=== PATIENT | female | born 2000 | race Caucasian/White ===

== ENCOUNTER 2023-10-16 13:40 | Outpatient (REF) | payer MEDICAID, SELFPAY ==
--- NOTE | 2023-10-16 13:20 | PAPFT_PTH ---
PATIENT: Mariana Elias LOC: [facility] U#:[id number] AGE/SX: 23/F ROOM: RE10/16/[address]: Rubina Jackson NP : 2000 BED: DIS: 10/16/2023 SPEC #: [id number] RECD: 10/16/23 18:07 STATUS: JACE REBrandon #: [id number] DEON: 10/16/23 13:[address]: Rubina Jackson NP DEPT: [facility] Cytology RECD BY: Tracy Anthony ENTERED: 10/16/23 18:07 SP TYPE: PAPFT OTHR DR: Katherine Rodgers Tissues: 1 - CX/ENDOCX FOR PAP SMEARS Procedures: PAP THIN PREP/[facility] Screening Comments: [id number]
== END 2023-10-16 13:41 | disposition home or self-care (01) ==
LOC: LBN 13:40
PROVIDERS: PCP Family Medicine; Visit Provider Nurse Practitioner Women's Health
DX: Z12.4 Encounter for screening for malignant neoplasm of cervix (principal)
CPT/HCPCS: 88142